=== PATIENT | male | born 1980 | race Caucasian/White ===

== ENCOUNTER 2016-05-20 16:30 | Emergency (ER) ==
[2016-05-20 16:30] VITALS: BMI 42.5
[2016-05-20 16:33] VITALS: BP 147/99; TEMP 99.3
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
== END 2016-05-20 17:28 | disposition home or self-care (01) ==
LOC: ED 16:30
DX: S63.502A Unspecified sprain of left wrist, initial encounter (principal); W19.XXXA Unspecified fall, initial encounter; F17.210 Nicotine dependence, cigarettes, uncomplicated
CPT/HCPCS: 99283

== ENCOUNTER 2016-08-26 16:41 | Emergency (ER) ==
[2016-08-26 16:51] VITALS: BP 162/102; TEMP 98.7; BMI 45.0
--- NOTE | 2016-08-26 17:25 | ED.PDOC ---
General ED Provider: Dr. 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) Information Source: Patient Exam Limitations: No limitations Primary Care Provider: AMISHA ALANIS Nursing and Triage Documentation Reviewed and Agree: Yes Musculoskeletal Complaint Exam - Back Pain Complaint/Exam Mechanism of Injury: Reports: No known trauma Onset/Duration: today Symptoms Are: Still present Timing: Constant Episodes Lasting: Minutes Initial Severity: Moderate Current Severity: Moderate Character: Reports: Aching Aggravating: Reports: Movements, Lifting, Bending Alleviating: Reports: Rest, Position Associated Signs and Symptoms: Denies: Swelling, Redness, Bruising, Fever, Weakness, Numbness, Tingling, Abdominal pain, Flank pain, Bladder incontinence, Bowel incontinence, Weight loss, Pain with weight bearing Related History: Reports: Similar episode TAD Risk Factors: Reports: None AAA Risk Factors: Reports: None Cauda Equina Risk Factors: Reports: None Epidural Abcess Risk Factors: Reports: None Focal Tenderness: No Paraspinal Muscle Tenderness: No Paraspinal Muscle Spasm: No Scoliosis: No Lordosis: No Kyphosis: No SLR Test: Right Negative, Left Negative Hip Motion Testing Pain: Right Negative, Left Negative Focal Weakness: Present: None Focal Sensory Loss: Present: None Differential Diagnoses: Strain, Sprain Review of Systems - Review Of Systems Constitutional: Reports: No symptoms Eyes: Reports: No symptoms Ears, Nose, Mouth, Throat: Reports: No symptoms Respiratory: Reports: No symptoms Cardiac: Reports: No symptoms GI: Reports: No symptoms : Reports: No symptoms Musculoskeletal: Reports: Back pain Skin: Reports: No symptoms Neurological: Reports: No symptoms Endocrine: Reports: No symptoms Hematologic/Lymphatic: Reports: No symptoms All Other Systems: Reviewed and Negative Past Medical History - Past Medical History Previously Healthy: Yes Endocrine: Reports: None Cardiovascular: Reports: None Respiratory: Reports: None Hematological: Reports: None Gastrointestinal: Reports: None Genitourinary: Reports: None Neuro/Psych: Reports: Anxiety Musculoskeletal: Reports: None Cancer: Reports: None - Surgical History General Surgical History: Reports: Unknown - Family History Family History: Reports: Unknown - Social History Smoking Status: Current every day smoker Hx Substance Use: No Alcohol Screening: None Physical Exam - Physical Exam Appearance: Well-appearing, No pain distress, Well-nourished Eyes: ELVIN, EOMI, Conjunctiva clear ENT: Ears normal, Nose normal, Oropharynx normal Respiratory: Airway patent, Breath sounds clear, Breath sounds equal, Respirations nonlabored Cardiovascular: RRR, Pulses normal, No rub, No murmur GI/: Soft, Nontender, No masses, Bowel sounds normal, No Organomegaly Musculoskeletal: Normal strength, ROM intact, No edema, No calf tenderness Skin: Warm, Dry, Normal color Neurological: Sensation intact, Motor intact, Reflexes intact, Cranial nerves intact, Alert, Oriented Psychiatric: Affect appropriate, Mood appropriate Critical Care Note - Critical Care Note Total Time (mins): 0 Course - Course Vital Signs: Temp Pulse Resp BP Pulse Ox 08/26/16 16:42 98.7 F 121 H 18 162/102 H 94 L Departure - Departure Time of Disposition: 17:25 Disposition: HOME SELF-CARE Discharge Problem: Backache Lumbar sprain Qualifiers: Encounter type: initial encounter Qualifier Code: (S33.5XXA) Sprain of ligaments of lumbar spine, initial encounter Instructions: Lower Back Exercises (ED) Condition: Good Pt referred to PMD for follow-up: No Allergies/Adverse Reactions: Allergies ciprofloxacin [From Cipro] Allergy (Intermediate, Verified 08/26/16 16:49) ciprofloxacin HCl [From Cipro] Allergy (Intermediate, Verified 08/26/16 16:49) sulfamethoxazole [From Bactrim] Allergy (Intermediate, Verified 08/26/16 16:49) trimethoprim [From Bactrim] Allergy (Intermediate, Verified 08/26/16 16:49) Home Medications: Ambulatory Orders Alprazolam [Xanax] 0.5 mg PO BID 11/02/14 Triamterene/Hydrochlorothiazid [Dyazide] 1 cap PO DAILY 05/20/16 Pantoprazole Sodium [Protonix] 40 mg PO DAILY 08/26/16 Quetiapine Fumarate [Seroquel] 200 mg PO BEDTIME 08/26/16 Venlafaxine HCl [Effexor Xr] 75 mg PO DAILY 08/26/16
== END 2016-08-26 17:36 | disposition home or self-care (01) ==
LOC: ED 16:41
DX: S33.5XXA Sprain of ligaments of lumbar spine, initial encounter (principal); F17.210 Nicotine dependence, cigarettes, uncomplicated
CPT/HCPCS: 99282

== ENCOUNTER 2016-12-07 12:15 | Emergency (ER) ==
[2016-12-07 12:35] VITALS: BP 159/101; TEMP 97.8; BMI 42.5
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
== END 2016-12-07 14:15 | disposition home or self-care (01) ==
LOC: ED 12:15
DX: M25.562 Pain in left knee (principal); R60.0 Localized edema; W19.XXXA Unspecified fall, initial encounter; F17.210 Nicotine dependence, cigarettes, uncomplicated
CPT/HCPCS: 99283

== ENCOUNTER 2017-03-02 17:10 | Emergency (ER) ==
[2017-03-02 17:20] VITALS: BMI 42.5
[2017-03-02] MEDS ORDERED: DILAUDID 1 MG/ML SYRINGE IM STA (17:42)
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
[2017-03-02 18:20] VITALS: BP 143/106; TEMP 98.9
== END 2017-03-02 18:46 | disposition home or self-care (01) ==
LOC: ED 17:10
DX: M54.5 Low back pain (principal); F17.210 Nicotine dependence, cigarettes, uncomplicated
CPT/HCPCS: 96372; 99282

== ENCOUNTER 2017-04-14 17:28 | Emergency (ER) ==
[2017-04-14 17:34] VITALS: BMI 44.5
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
[2017-04-14] MEDS ORDERED: DUONEB NEB STA (17:49)
[2017-04-14 18:16] LABS: BASOPHILS # (AUTO) 0.1 K/uL (0-0.2); BASOPHILS % (AUTO) 0.6 % (0.0-3.0); EOSINOPHILS # (AUTO) 0.3 K/ul (0.0-0.7); EOSINOPHILS % (AUTO) 3.4 % (0.0-7.0); HEMOGLOBIN 15.5 g/dl (14.0-18.0); IMMATURE GRANULOCYTE % (AUTO) 0.6 % (0.0-5.0); LYMPHOCYTES # (AUTO) 3.1 K/uL (0.60-3.4); LYMPHOCYTES % (AUTO) 32.9 (10.0-50.0); MEAN CORPUSCULAR HGB CONC 33.7 (31.8-35.4); MEAN CORPUSCULAR VOLUME 86.1 fl (80.0-94.0); MONOCYTES # (AUTO) 0.5 K/uL (0.4-2.0); MONOCYTES % (AUTO) 5.5 (0-10); NEUTROPHILS # (AUTO) 5.3 K/ul (2.0-6.9); PLATELET COUNT 283 10^3/uL (140-440); RED BLOOD COUNT 5.34 10^6/ul (4.70-6.10); WHITE BLOOD COUNT 9.28 K/ul (4.2-10.2)
[2017-04-14 18:27] LABS: FLU INTERNAL QC INTERNAL QC VALID; RAPID FLU A NEGATIVE (NEGATIVE); RAPID FLU B NEGATIVE (NEGATIVE)
[2017-04-14] MEDS ORDERED: ROCEPHIN 1 GM in SODIUM CHLORIDE 50 ML IV STA (18:31)
[2017-04-14] MEDS ORDERED: ROCEPHIN ONE (18:33)
[2017-04-14] MEDS ORDERED: ZOFRAN 4 MG/2 ML IVP STA (18:42)
[2017-04-14] MEDS ORDERED: MORPHINE 4 MG/ML VIAL IVP STA (18:42)
[2017-04-14 18:51] LABS: ALANINE AMINOTRANSFERASE 45 U/L (12-78); ALBUMIN 3.7 g/dL (3.4-5.0); ALBUMIN/GLOBULIN RATIO 1.03; ALKALINE PHOSPHATASE 81 U/L (50-136); ANION GAP 13.4; ASPARTATE AMINO TRANSFERASE 51 U/L (15-37); BILIRUBIN,TOTAL 0.41 mg/dL (0.00-1.20); BLOOD UREA NITROGEN 12 mg/dL (7-18); BUN/CREATININE RATIO 15.18; CALCIUM 9.8 mg/dL (8.2-10.2); CARBON DIOXIDE 30 mmol/L (21-32); CHLORIDE 99 mmol/L (98-107); CREATINE KINASE 361 U/L; CREATININE 0.79 mg/dL (0.60-1.10); GLUCOSE 251 mg/dL (70-100); POTASSIUM 3.4 mmol/L (3.5-5.1); SODIUM 139 mmol/L (136-145); TOTAL PROTEIN 7.3 g/dL (6.4-8.2)
[2017-04-14 18:53] LABS: CREATINE KINASE MB 1.6 ng/ml (0.0-3.6)
[2017-04-14] MEDS ORDERED: SOLU-MEDROL 125 MG IVP STA (18:59)
[2017-04-14 23:12] VITALS: BP 135/86; TEMP 98.8
--- NOTE | 2017-04-15 07:42 | DI ---
EXAM: PA and lateral views of the chest HISTORY: Cough and shortness of breath COMPARISON: Chest x-ray 07/08/2015 FINDINGS: The cardiomediastinal silhouette is normal. There is no pneumothorax or pleural effusion. There is no consolidation, nodule or mass. The osseous structures are unremarkable. IMPRESSION: No acute cardiopulmonary process
== END 2017-04-14 19:50 | disposition home or self-care (01) ==
LOC: ED 17:28
DX: J20.9 Acute bronchitis, unspecified (principal); R07.89 Other chest pain; F17.210 Nicotine dependence, cigarettes, uncomplicated
CPT/HCPCS: 36415; 80053; 82550; 82553; 84484; 85025; 85379; 87040; 87651; 87804; 87880; 93005; 93010; 94640; 96361; 96365; 96366; 96375; 99284

== ENCOUNTER 2017-04-22 18:29 | Emergency (ER) ==
[2017-04-22 18:34] VITALS: BP 178/100; TEMP 97.8; BMI 44.6
[2017-04-22] MEDS ORDERED: DECADRON 4 MG/ML SDV IM STA (19:23)
[2017-04-22] MEDS ORDERED: CARAFATE PO STA (19:23)
[2017-04-22] MEDS ORDERED: GI COCKTAIL PO STA (19:23)
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
[2017-04-22 19:41] LABS: BASOPHILS # (AUTO) 0.1 K/uL (0-0.2); BASOPHILS % (AUTO) 0.6 % (0.0-3.0); EOSINOPHILS # (AUTO) 0.2 K/ul (0.0-0.7); EOSINOPHILS % (AUTO) 2.1 % (0.0-7.0); HEMATOCRIT 46.8 % (42.0-52.0); IMMATURE GRANULOCYTE % (AUTO) 0.4 % (0.0-5.0); LYMPHOCYTES # (AUTO) 3.1 K/uL (0.60-3.4); LYMPHOCYTES % (AUTO) 30.8 (10.0-50.0); MEAN CORPUSCULAR HEMOGLOBIN 28.9 pg (27.0-31.0); MEAN CORPUSCULAR HGB CONC 34.2 (31.8-35.4); MEAN CORPUSCULAR VOLUME 84.6 fl (80.0-94.0); MONOCYTES # (AUTO) 0.6 K/uL (0.4-2.0); MONOCYTES % (AUTO) 5.7 (0-10); NEUTROPHILS # (AUTO) 6.2 K/ul (2.0-6.9); NEUTROPHILS % (AUTO) 60.4; PLATELET COUNT 289 10^3/uL (140-440); RED BLOOD COUNT 5.53 10^6/ul (4.70-6.10); WHITE BLOOD COUNT 10.19 K/ul (4.2-10.2)
[2017-04-22 19:59] LABS: ALBUMIN 4.1 g/dL (3.4-5.0); ALBUMIN/GLOBULIN RATIO 1.05; BILIRUBIN,TOTAL 0.8 mg/dL (0.00-1.20); BUN/CREATININE RATIO 12.82; CALCIUM 9.7 mg/dL (8.2-10.2); CREATININE 0.78 mg/dL (0.60-1.10)
--- NOTE | 2017-04-22 22:10 | DI ---
EXAM: Chest two views HISTORY: Coughing COMPARISON: 04/14/2017 TECHNIQUE: Two views of the chest were performed FINDINGS: The lungs are clear. There is no pleural effusion or pneumothorax. The heart is normal i n size. The mediastinal contour is normal. There are no acute abnormalities of the bones. IMPRESSION: No acute cardiopulmonary process.
== END 2017-04-22 20:30 | disposition home or self-care (01) ==
LOC: ED 18:29
DX: E11.9 Type 2 diabetes mellitus without complications (principal); I10 Essential (primary) hypertension; F17.210 Nicotine dependence, cigarettes, uncomplicated; Z79.899 Other long term (current) drug therapy
CPT/HCPCS: 36415; 80053; 82150; 83036; 83690; 85025; 85379; 96372; 99283

== ENCOUNTER 2017-11-16 00:18 | Emergency (ER) ==
[2017-11-16 00:29] VITALS: BMI 37.9
[2017-11-16] MEDS ORDERED: VANCOMYCIN 1 GM in SODIUM CHLORIDE 250 ML IV STA (01:03)
[2017-11-16] MEDS ORDERED: SODIUM CHLORIDE 1,000 ML IV STA (01:03)
[2017-11-16] MEDS ORDERED: TORADOL IVP STA (01:37)
[2017-11-16] MEDS ORDERED: MORPHINE 4 MG/ML SYRINGE IVP STA (01:37)
--- NOTE | 2017-11-16 01:49 | CT ---
Exam: CT of the left knee without contrast History: Draining and swelling Technique: [address] of the left knee with multiplanar reformations FINDINGS: Large joint effusion is present. Metallic artifact is technically inhibiting. No soft ti ssue gas or gas seen within the joint effusion. Confluent edema of the subcutaneous fat over the pat [place]. There is probably some fluid within the subcutaneous fat. No organized measurable collection is discernible. Knee arthroplasty without evidence of geo-hardware fracture. Impression: 1. Left knee arthroplasty without evidence of loosening or geo-hardware fracture 2. Large joint effusion 3. Confluent edematous change of the subcutaneous fat over the patella, upper and lower patellar ten don. Probably some fluid accumulating within the confluent edematous change. 4. Infectious and sterile fluid collections are considered.
[2017-11-16] MEDS ORDERED: MORPHINE 2 MG/ML SYRINGE IVP STA (02:21)
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
[2017-11-16 03:02] VITALS: BP 119/66; TEMP 100.8
[2017-11-16] MEDS ORDERED: DILAUDID 0.5 MG/0.5 ML SYRINGE IVP STA ×2 (03:03→04:00)
== END 2017-11-16 04:10 | disposition short-term general hospital (02) ==
LOC: ED 00:18
DX: T84.54XA Infection and inflammatory reaction due to internal left knee prosthesis, initial encounter (principal); M25.562 Pain in left knee; Z98.890 Other specified postprocedural states; F17.210 Nicotine dependence, cigarettes, uncomplicated
CPT/HCPCS: 36415; 80053; 83605; 84145; 85025; 85651; 87040; 87070; 87186; 96361; 96365; 96375; 99285

== ENCOUNTER 2018-05-04 14:33 | Emergency (ER) ==
[2018-05-04 14:40] VITALS: TEMP 97.6; BMI 38.1
[2018-05-04] MEDS ORDERED: TORADOL IM STA (15:09)
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
--- NOTE | 2018-05-04 15:39 | CT ---
EXAM: CT cervical spine without contrast HISTORY: Neck pain, upper back pain, no injury TECHNIQUE: Multi-slice transaxial helical with coronal and sagittal reformatted views. COMPARISON: None FINDINGS: There is mild marginal osteophyte formation at C4-C5 and C5-C6. The cervical lordosis is mildly reversed. Intervertebral joint spaces are maintained. The vertebrae have normal height and al ignment. No acute fractures or lithesis are observed. The prevertebral soft tissues have normal widt h. The facet alignment is appropriate. Segmental analysis: C2-C3: A mild disc protrusion effaces the thecal sac. The central canal diameter is mildly narrowed. The neural foramina are maintained. C3-C4: A mild disc protrusion effaces the thecal sac. The central canal diameter is mildly narrowed. There is mild right neural foramen stenosis secondary to facet/uncovertebral joint hypertrophy. Th e left neural foramen is maintained. C4-C5: A disc spur complex effaces the thecal sac. The central canal diameter is mildly narrowed. T he neural foramina are maintained. The facets are hypertrophic. C5-C6: A mild disc protrusion is suggested. Beam-hardening artifact the patient's shoulders/person d etails. No obvious central canal or neural foramen stenosis. The facets are hypertrophic. C6-C7: No significant disc herniation, central canal stenosis, or neural foramen stenosis. C7-T1: No significant disc herniation, central canal stenosis, or neural foramen stenosis. IMPRESSION: 1. No acute fracture or lithesis. 2. Mild reversal of the normal cervical lordosis. 3. Mild central canal stenosis at C2-C3, C3-C4, and C4-C5. 4. Neural foramen stenosis; mild right at C3-C4.
--- NOTE | 2018-05-04 15:46 | CT ---
EXAM: CT thoracic spine without contrast HISTORY: Neck pain and upper back pain, no injury TECHNIQUE: Multislice helical with reformatted images COMPARISON: CT cervical spine from 05/04/2018 FINDINGS: The vertebrae have normal height and alignment. The intervertebral joint spaces are mildl y narrowed mid thoracic spine. No acute fracture or listhesis are appreciated. Segmental analysis: T1-T2: No significant disc herniation or central canal stenosis. The facets are hypertrophic with mi ld left neural foramen stenosis. The right neural foramen is maintained. T2-T3: No significant disc herniation or central canal stenosis. The facets are hypertrophic with mi ld left greater than right neural foramen stenosis. T3-T4: No significant disc herniation or central canal stenosis. The facets are hypertrophic minimal left neural foramen stenosis. The right neural foramen is maintained. T4-T5: No significant disc herniation or central canal stenosis. The facets are hypertrophic with mi ld right neural foramen stenosis. The left neural foramen is maintained. T5-T6: No significant disc herniation or central canal stenosis. The neural foramina are maintained. T6-T7: No significant disc herniation or central canal stenosis. The facets are hypertrophic. The n eural foramina are maintained. T7-T8: No significant disc herniation or central canal stenosis. The facets are hypertrophic with mi ld left greater than right neural foramen stenosis. T8-T9: No significant disc herniation or central canal stenosis. The facets are hypertrophic with mi ld bilateral neural foramen stenosis. T9-T10: No significant disc herniation or or central canal stenosis. The facets are hypertrophic wit h mild bilateral neural foramen stenosis. T10-T11: No significant disc herniation or central canal stenosis. The facets are hypertrophic with mild left neural foramen stenosis. The right neural foramen is maintained. T11-T12: No significant disc herniation, central canal stenosis, or neural foramen stenosis. IMPRESSION: 1. Mild diffuse degenerative disc disease. 2. No acute fracture or listhesis. 3. Mild multilevel neural foramen stenosis secondary to facet hypertrophy. 4. No central canal stenosis.
[2018-05-04 16:47] VITALS: BP 173/99
== END 2018-05-04 16:48 | disposition home or self-care (01) ==
LOC: ED 14:33
DX: S16.1XXA Strain of muscle, fascia and tendon at neck level, initial encounter (principal); M50.30 Other cervical disc degeneration, unspecified cervical region; M51.34 Other intervertebral disc degeneration, thoracic region; M62.830 Muscle spasm of back; X50.1XXA Overexertion from prolonged static or awkward postures, initial encounter; I10 Essential (primary) hypertension; Z79.899 Other long term (current) drug therapy; F17.210 Nicotine dependence, cigarettes, uncomplicated
CPT/HCPCS: 36415; 80053; 82550; 82553; 85025; 85651; 96372; 99283

== ENCOUNTER 2018-05-06 15:10 | Emergency (ER) ==
[2018-05-06 15:17] VITALS: BP 153/90; TEMP 98.2; BMI 39.0
--- NOTE | 2018-05-06 16:38 | CT ---
EXAM: CT scan of the left shoulder without contrast HISTORY: Pain TECHNIQUE: Helical imaging of the left shoulder was performed without contrast. Sagittal and joiner l reconstructions and axial images were provided for interpretation. FINDINGS: The humeral head is seen in normal position. No acute fractures are seen. The scapula an d clavicle appear intact. The soft tissues are normal. Mild degenerative subchondral cystic changes are seen along the greater tuberosity. IMPRESSION: No acute abnormalities are seen within the left shoulder.
--- NOTE | 2018-05-06 16:42 | CT ---
EXAM: CT of the cervical spine without contrast History: Left-sided neck pain. Comparison: CT cervical spine 05/04/2018 Technique: Multiplanar CT images through the cervical spine were obtained without the administration of IV contrast Findings: The visualized upper lungs are clear. The visualized airway remains patent. No acute fra cture or subluxation of the cervical spine. Reversal of the normal cervical lordosis. No prevertebr al soft tissue swelling. Predental space is not widened. No change in the mild multilevel disc spac e narrowing with a few small osteophytes. Bony spinal canal is not significantly compromised. No si gnificant bony neural foraminal narrowing. Impression: 1. No acute osseous abnormality. 2. No significant degenerative changes. 3. If pain persists, recommend further evaluation with MRI.
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
--- NOTE | 2018-05-06 17:08 | CT ---
EXAM: CT of the chest without contrast History: Chest wall pain. Comparison: Chest radiograph 04/22/2017 Technique: Multiplanar CT images through the thorax were obtained without the administration of IV c ontrast Findings: Heart size is normal. No pericardial effusion. Great vessels are unremarkable. No patho logically enlarged thoracic lymph nodes. No pleural fluid and no pneumothorax. No suspicious lung n odules or lung masses. Mild bilateral ground-glass infiltrates. No densely consolidated pneumonia. Within the visualized upper abdomen, status post cholecystectomy. No acute osseous abnormalities. Impression: Mild bilateral ground-glass infiltrates compatible with infectious or inflammatory proce ss.
== END 2018-05-06 17:40 | disposition home or self-care (01) ==
LOC: ED 15:10
DX: M25.519 Pain in unspecified shoulder (principal); M50.90 Cervical disc disorder, unspecified, unspecified cervical region
CPT/HCPCS: 36415; 80053; 85025; 99283

== ENCOUNTER 2018-05-31 05:40 | Emergency (ER) ==
[2018-05-31 05:49] VITALS: TEMP 98.6; BMI 39.5
[2018-05-31] MEDS ORDERED: ZOFRAN 4 MG/2 ML IVP STA (06:11)
[2018-05-31] MEDS ORDERED: DILAUDID 1 MG/ML SYRINGE IVP STA (06:11)
[2018-05-31] MEDS ORDERED: LOPRESSOR IVP STA (06:12)
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
--- NOTE | 2018-05-31 07:56 | CT ---
EXAM: CT of the head without contrast. HISTORY: Headache. COMPARISON: None. TECHNIQUE: Contiguous axial images at 5 mm intervals were obtained from the base of the skull to the vertex of the calvarium. No contrast was given. FINDINGS: Extra-axial spaces: The CSF containing spaces are normal in size and position.There are no extraaxia l fluid collections. Hemorrhage: There is no evidence of an acute intracranial hemorrhage. Cerebral Parenchyma: No areas of abnormal density are identified. Murillo-white differentiation is norm al. Masses/Mass effect: None. There is no midline shift. Cerebellum: Normal. Vasculature: Normal. Calvarium: Normal. Soft tissues: Normal. IMPRESSION: 1. No acute intracranial abnormality. 2. Normal study.
--- NOTE | 2018-05-31 08:06 | CT ---
Exam: CT pulmonary angiography. HISTORY: Chest pain.. COMPARISON: Noncontrast CT of the chest dated 05/06/2018 CONTRAST: 125 ml Omnipaque [id number] TECHNIQUE: Contiguous axial images at 3 mm intervals were obtained from the base of the lungs to the upper chest. IV contrast was given. 3D volume rendered images were also reviewed and saved to PACS . Coronaland saggital MPR reformats and coronal oblique MIP reformats were reviewed. FINDINGS: The pulmonary arteries are well opacified. There are no filling defects to suggest acute pulmonary embolus. Aorta is also well opacified. There is no aneurysm or dissection. The great vessels are within normal limits. The heart size is within normal limits. No mediastinal or hilar adenopathy is noted. The lungs are clear without consolidation or effusion. There are no suspicious pulmonary nodules. A irways are widely patent. Pulmonary interstitium appears normal. There is no pleural thickening or pleural effusion. Limited views of the upper abdomen are unremarkable. The gallbladder is absent. IMPRESSION: 1. No CT evidence of acute pulmonary embolus or aortic dissection. 2. No acute pulmonary disease.
[2018-05-31] MEDS ORDERED: TORADOL IVP STA (08:11)
[2018-05-31] MEDS ORDERED: NORFLEX PO STA (08:12)
[2018-05-31 09:15] VITALS: BP 126/81
== END 2018-05-31 09:59 | disposition home or self-care (01) ==
LOC: ED 05:40
DX: G44.209 Tension-type headache, unspecified, not intractable (principal); M99.01 Segmental and somatic dysfunction of cervical region; M99.02 Segmental and somatic dysfunction of thoracic region; R07.9 Chest pain, unspecified; F17.210 Nicotine dependence, cigarettes, uncomplicated
CPT/HCPCS: 36415; 80053; 81001; 82150; 82550; 82553; 83690; 84484; 85025; 93005; 93010; 96374; 96375; 99283